=== PATIENT | female | born 1995 | race Caucasian/White ===

== ENCOUNTER 2021-02-22 14:18 | Emergency (ER) | payer OTHER ==
[~2021-02-22] VITALS: Ht 154.9 cm; Wt 55.8 kg
== END 2021-02-22 16:05 | disposition home or self-care (01) ==
LOC: ER 14:18
DX: J31.0 Chronic rhinitis (principal); B97.89 Other viral agents as the cause of diseases classified elsewhere; Z20.822 Contact with and (suspected) exposure to COVID-19
CPT/HCPCS: 99284